=== PATIENT | male | born 1980 | race American Indian/Alaskan Native ===

== ENCOUNTER 2019-12-15 18:07 | Emergency (ER) | payer OTHER ==
[2019-12-15] MEDS ORDERED: Fentanyl 100 MCG/2 ML VIAL ONE ×3 (18:43→18:58)
[2019-12-15] MEDS ORDERED: Ondansetron PF 4 MG/2 ML Vial ONE (18:43)
[2019-12-15] MEDS ORDERED: Bupivacaine PF 0.5% 30 ML VIAL ONE ×2 (18:44→22:39)
--- NOTE | 2019-12-15 19:36 | RAD ---
MANDIBLE FOUR VIEWS: History: Injury, facial pain. FINDINGS: No definite fracture is seen. If there is high clinical suspicion for a fracture, further evaluation with CT scan should be perform ed. IMPRESSION: As above. POS: GAGANDEEP
[2019-12-15] MEDS ORDERED: Adacel (T-DAP) 0.5 ML SYRINGE ONE (20:12)
--- NOTE | 2019-12-15 20:41 | RAD ---
LEFT SHOULDER THREE VIEWS: History: Injury, left shoulder pain. FINDINGS: There is an anterior dislocation of the glenohumeral joint. No fracture is identified. IMPRESSION: As above. POS: GAGANDEEP
== END 2019-12-15 21:15 | disposition home or self-care (01) ==
LOC: MADERS 18:07
DX: S43.015A Anterior dislocation of left humerus, initial encounter (principal); S01.81XA Laceration without foreign body of other part of head, initial encounter; Z79.899 Other long term (current) drug therapy; W18.30XA Fall on same level, unspecified, initial encounter; Y92.481 Parking lot as the place of occurrence of the external cause
CPT/HCPCS: 23650; 70110; 90471; 90715; 96374; 96375; J2405; J3010; S0020